=== PATIENT | male | born 1960 | race Caucasian/White ===

== ENCOUNTER 2020-02-13 16:47 | Emergency (ER) | payer OTHER ==
--- NOTE | 2020-02-13 17:51 | EDM.PDOC ---
ED HPI GENERAL MEDICAL PROBLEM - General Stated Complaint: FISH HOOK IN RIGHT THUMB Time Seen by Provider: 02/13/20 17:15 Source of Information: Reports: Patient History Limitations: Reports: No Limitations - History of Present Illness INITIAL COMMENTS - FREE TEXT/NARRATIVE: This is a 59yo M here for a recent fish hook injury. He has had no other complications. He notes his tetanus is up to date. Onset: Sudden Location: Reports: Upper Extremity, Right Improves with: Reports: None Worsens with: Reports: None Associated Symptoms: Reports: No Other Symptoms ED ROS GENERAL - Review of Systems Review Of Systems: See Below Constitutional: Reports: No Symptoms HEENT: Reports: No Symptoms Respiratory: Reports: No Symptoms Cardiovascular: Reports: No Symptoms Endocrine: Reports: No Symptoms GI/Abdominal: Reports: No Symptoms : Reports: No Symptoms Musculoskeletal: Reports: No Symptoms Skin: Reports: Other (fish hook of right thumb) ED EXAM, GENERAL - Physical Exam Exam: See Below Exam Limited By: No Limitations General Appearance: Alert, WD/WN, No Apparent Distress Ears: Normal External Exam Nose: Normal Inspection Throat/Mouth: Normal Inspection Respiratory/Chest: No Respiratory Distress Cardiovascular: Normal Peripheral Pulses Extremities: Normal Inspection Skin Exam: Other (fish hook of the right thumb pad) ED GENERAL MEDICAL PROCEDURES - Laceration/Wound Repair Right Digit - 1st (Thumb) Distal NVT: Neuro & Vascular Intact Anesthetic Type: Local Local Anesthesia - Lidocaine (Xylocaine): 1% Plain Local Anesthetic Volume: 1cc Tetanus Status Addressed: Yes Complications: No Progress/Comments: Fish hook retracted with 21 ga needle with no complications. Course - Vital Signs Last Recorded V/S: Last Vital Signs Temp 36.4 C 02/13/20 17:14 Pulse 66 02/13/20 17:14 Resp 16 02/13/20 17:14 BP 163/102 H 02/13/20 17:14 Pulse Ox 99 02/13/20 17:14 Departure - Departure Time of Disposition: 17:40 Disposition: Home, Self-Care 01 Condition: Good Clinical Impression: Fish hook injury of finger of right hand Qualifiers: Encounter type: initial encounter Qualified Code(s): S69.91XA - Unspecified injury of right wrist, hand and finger(s), initial encounter - Discharge Information Instructions: Wound Care, Adult Referrals: PCP,None [Primary Care Provider] - Care Plan Goals: Keep wound clean and dry, watch for signs of infection. Return to hospital or clinic with any questions or concerns. May use bacitracin or antibiotic on wound for the next couple of days. Sepsis Event Note (ED) - Evaluation Sepsis Screening Result: No Definite Risk - Focused Exam Vital Signs: Vital Signs Temp Pulse Resp BP Pulse Ox 02/13/20 17:14 36.4 C 66 16 163/102 H 99
== END 2020-02-13 17:37 | disposition home or self-care (01) ==
LOC: LB.ED 16:47
DX: S60.351A Superficial foreign body of right thumb, initial encounter (principal); W45.8XXA Other foreign body or object entering through skin, initial encounter
CPT/HCPCS: 99283